=== PATIENT | female | born 1970 | race Caucasian/White ===

== ENCOUNTER 2017-12-13 11:27 | Emergency (ER) | payer MEDICAID ==
[2015-04-19 13:24] VITALS: BMI 24.1
[~2017-12-13 11:27] MED LIST: NORVASC5 MG PO; PLAVIX75 MG PO
[2017-12-13 12:20] LABS: ALBUMIN 3.3 g/dL (3.4-5.0); ANION GAP 16.3 mmol/L (8-16); BILIRUBIN - TOTAL 0.45 mg/dL (0.2-1.3); CALCIUM 8.5 mg/dL (8.5-10.1); CARBON DIOXIDE 25.2 mmol/L (21.0-32.0); CREATININE - SERUM 0.9 mg/dL (0.6-1.3); POTASSIUM - SERUM 4.5 mmol/L (3.5-5.1); PROTEIN - SERUM 7.1 g/dL (6.4-8.2)
[2017-12-13 12:24] LABS: BASOPHILS 0.3 % (0-2); EOSINOPHILS 3.4 % (0-7); HEMATOCRIT 36.7 % (36.0-48.0); IMMATURE GRANULOCYTES 0.3 % (0-5); LYMPHOCYTES 25.1 % (15-50); MCH 29.9 pg (26.0-34.0); MCHC 32.7 g/dL (31.0-37.0); MCV 91.5 fL (80.0-100.0); MEAN PLATELET VOLUME 10.6 fL (7.4-10.4); NEUTROPHILS 63.9 % (40-80); RBC 4.01 10x6/uL (4.00-5.40); RDW 13.9 % (11.5-14.5); WBC 7.7 10x3/uL (4.8-10.8)
[2017-12-13 12:25] LABS: PLATELET COUNT 253 10x3/uL (130-400)
[2017-12-13 13:58] LABS: INR 1.03 (0.85-1.17); PROTIME 13.1 SECONDS (11.6-15.0)
[2017-12-13 14:54] LABS: APPEARANCE HAZY (CLEAR); BILIRUBIN NEGATIVE (NEGATIVE); COLOR YELLOW (YELLOW); GLUCOSE NEGATIVE (NEGATIVE); KETONE NEGATIVE (NEGATIVE); NITRITE NEGATIVE (NEGATIVE); PROTEIN NEGATIVE (NEGATIVE); UROBILINOGEN NORMAL (NORMAL)
== END 2017-12-13 17:00 | disposition home or self-care (01) ==
LOC: D.ER 11:27
PROVIDERS: Family Medicine; Nurse Practitioner Family
DX: R60.0 Localized edema (principal); I10 Essential (primary) hypertension; E11.9 Type 2 diabetes mellitus without complications; I25.10 Atherosclerotic heart disease of native coronary artery without angina pectoris

== ENCOUNTER 2018-01-17 19:23 | Emergency (ER) | payer MEDICAID ==
[2015-04-19 13:24] VITALS: BMI 24.1
[2018-01-17 20:03] LABS: BASOPHILS 0.2 % (0-2); EOSINOPHILS 2.3 % (0-7); HEMATOCRIT 38.8 % (36.0-48.0); HEMOGLOBIN 12.9 g/dL (12-16); IMMATURE GRANULOCYTES 0.3 % (0-5); LYMPHOCYTES 20.9 % (15-50); MCH 30.4 pg (26.0-34.0); MCHC 33.2 g/dL (31.0-37.0); MCV 91.5 fL (80.0-100.0); MEAN PLATELET VOLUME 10.5 fL (7.4-10.4); MONOCYTES 7.2 % (2-11); NEUTROPHILS 69.1 % (40-80); PLATELET COUNT 298 10x3/uL (130-400); RBC 4.24 10x6/uL (4.00-5.40); RDW 13.8 % (11.5-14.5); WBC 10.3 10x3/uL (4.8-10.8)
[2018-01-17 20:22] LABS: ALBUMIN 3.6 g/dL (3.4-5.0); ALKALINE PHOSPHATASE 102 U/L (46-116); ALT (SGPT) 31 U/L (10-68); BILIRUBIN - TOTAL 0.19 mg/dL (0.2-1.3); CALC OSMOLALITY 285 mosm/kg (275-300); CALCIUM 8.6 mg/dL (8.5-10.1); CARBON DIOXIDE 28.1 mmol/L (21.0-32.0); CHLORIDE - SERUM 105 mmol/L (98-107); GLUCOSE 127 mg/dL (74-106); PROTEIN - SERUM 7.4 g/dL (6.4-8.2); SODIUM 142 mmol/L (136-145); UREA NITROGEN 16 mg/dL (7-18); eGFR NON AFRICAN AMERICAN 63 mL/min (90-120)
[2018-01-17 20:26] LABS: CREATINE KINASE 63 UL (21-215); TROPONIN-I < 0.017 ng/mL (0.000-0.060)
[2018-01-17 23:32] LABS: LIPASE 88 U/L (73-393); PRO BNP 73 pg/mL (0-125)
== END 2018-01-17 23:53 | disposition home or self-care (01) ==
LOC: D.ER 19:23
PROVIDERS: Family Medicine
DX: R53.1 Weakness (principal); R42 Dizziness and giddiness; I25.10 Atherosclerotic heart disease of native coronary artery without angina pectoris; E11.9 Type 2 diabetes mellitus without complications

== ENCOUNTER 2018-09-29 05:15 | Day surgery (SDC) | payer MEDICAID ==
[2018-09-26 14:37] LABS: BASOPHILS 0.2 % (0-2); EOSINOPHILS 3.2 % (0-7); HEMATOCRIT 41.8 % (36.0-48.0); HEMOGLOBIN 13.9 g/dL (12-16); IMMATURE GRANULOCYTES 0.3 % (0-5); LYMPHOCYTES 27.6 % (15-50); MCH 29.2 pg (26.0-34.0); MCHC 33.3 g/dL (31.0-37.0); MCV 87.8 fL (80.0-100.0); MEAN PLATELET VOLUME 10.4 fL (7.4-10.4); MONOCYTES 5.4 % (2-11); NEUTROPHILS 63.3 % (40-80); PLATELET COUNT 293 10x3/uL (130-400); RBC 4.76 10x6/uL (4.00-5.40); RDW 14.9 % (11.5-14.5); WBC 9.9 10x3/uL (4.8-10.8)
[2018-09-26 14:51] LABS: ANION GAP 12.3 mmol/L (8-16); CALCIUM 8.6 mg/dL (8.5-10.1); CARBON DIOXIDE 25.7 mmol/L (21.0-32.0); CREATININE - SERUM 0.9 mg/dL (0.6-1.3)
[~2018-09-29] VITALS: Ht 162.6 cm; Wt 86.8 kg
[2018-09-29] VITALS (10 sets, daily range): BP systolic 106–126; BP diastolic 61–81; BMI 32.3
[~2018-09-29 05:15] MED LIST changes: +BAYER CHEWABLE81 MG PO; +FLUTICASONE PRO16 GM NASAL; +GLUCOPHAGE500 MG PO; +KLONOPIN1 MG PO; +LEVOTHYROXINE50 MCG PO; +LEXAPRO10 MG PO; +LIPITOR80 MG PO; +METOPROLOL-HCT1 EACH PO; +MOBIC7.5 MG PO; +PROVENTIL/2.5 MG/3 M INH; +PROVERA10 MG PO; +RANEXA1000 MG PO; +TOPAMAX50 MG PO
[2018-09-29] MEDS ORDERED: HYDROCHLOROTHIA25 MG PO (06:21)
[2018-09-29] MEDS ORDERED: METOPROLOL TART25 MG PO (06:21)
[2018-09-29 07:04] LABS: HCG URINE NEGATIVE (NEGATIVE)
--- NOTE | 2018-09-29 11:58 | NUR ---
1145-RECD FROM PACU. AROUSES EASILY, DROWSY. O2 ON AT 2L PER NC. IV PATENT. INCISIONS X 3 TO ABD DRY AND INTACT. STATES SHE IS COMFORTABLE. TAKING ICE CHIPS WITHOUT NAUSEA.
--- NOTE | 2018-09-29 12:36 | NUR ---
RECEIVED PT VIA STRETCHER FROM OUTPATIENT TO ROOM 1274. PT TRANSFERS ONTO BED PER SELF. VSS. PIV SITE CLEAR TO RIGHT AC-20 GAUGE CATHELON NOTED. TRANSPORTER STATES LANG TAKEN OUT IN OUTPATIENT DEPT. PT STATES HAS NOT VOIDED SINCE LANG REMOVED. SCDS ON BLE. PUMP ON. 3 LAP INCISION NOTED WITH DERMABOND. NO SWELLING OR DRAINAGE NOTED. SMALL AREA OF REDNESS NOTED AROUND INCISIONS. PT DENIES C/O PAIN OR NAUSEA. PT REQUESTING TO EAT. DIET LEMON-EKUK SODA PROVIDED TO PT. SR UP X 2. CALL LIGHT IN REACH.
--- NOTE | 2018-09-29 13:00 | NUR ---
DR MCQUEEN ON UNIT. NOTIFIED PT HAS HOME MEDS, NOT ORDERED TO CONTINUE AND PT REQUESTING TO EAT. ORDERS RECEIVED.
--- NOTE | 2018-09-29 14:05 | NUR ---
PT LYING IN SEMI-PANG'S POSITION IN BED. WAKES UPON ENTERING ROOM. STATES ATE SOME LUNCH. DENIES NAUSEA OR C/O.
--- NOTE | 2018-09-29 15:29 | NUR ---
PT OOB AND AMB TO BR TO VOID. STEADY GAIT.
--- NOTE | 2018-09-29 15:32 | NUR ---
PT VOIDS 30 ML OF BRIGHT YELLOW URINE. NO VAGINAL DISCHARGE NOTED. PANTIES AND PAD ON. PT AMBULATES BACK TO BED. SEAMUS ACTIVITY WELL.
--- NOTE | 2018-09-29 15:47 | NUR ---
PT C/O ABDOMINAL PAIN OF "5" ON 0-10 PAIN SCALE. PERCOCET 5325 GIVEN PO ORDERED. PT INSTRUCTED ON MED. VERBALIZES UNDERSTANDING. O2 SAT 93%. O2 BACK ON PER N/C AT 2 L/MIN.
--- NOTE | 2018-09-29 17:51 | NUR ---
MEDS GIVEN ORDERED. PT CONSUMES ADA DIET WITHOUT C/O NAUSEA. NO C/O VOICED.
--- NOTE | 2018-09-29 18:00 | NUR ---
PT OBO AND AMB TO BR. VOIDS 150 ML OF BRIGHT YELLOW URINE. PT AMBULATES BACK TO BED. SCDS BACK ON BLE. PUMP ON. PULSE OX 92% ON ROOM AIR. N/C BACK ON AT 2L/MIN.
--- NOTE | 2018-09-29 18:25 | NUR ---
O2 SAT 98% WITH O2 OFF.
--- NOTE | 2018-09-29 18:29 | NUR ---
DR MCQUEEN ON UNIT. STATUS REPORT GIVEN. STATES PT MAY DC HOME IF DESIRES.
--- NOTE | 2018-09-29 18:32 | OP ---
PATIENT NAME: TANISHA TAYLOR MEDICAL RECORD: [id number] :68 [facility].1274 ADMISSION DATE: SURGEON: ARSALAN MCQUEEN MD DATE OF OPERATION: 09/29/2018 PREOPERATIVE DIAGNOSIS: Dysfunctional uterine bleeding. POSTOPERATIVE DIAGNOSES: 1. Dysfunctional uterine bleeding. 2. Suspect adenomyosis. 3. Adhesive disease. PROCEDURES: 1. Diagnostic laparoscopy. 2. Lysis of adhesions. 3. Laparoscopic subtotal hysterectomy. 4. Left oophorectomy. 5. Bilateral salpingectomy. SURGEON: Arsalan Mcqueen MD DIE FINISHER: Edgard Blum ANESTHESIOLOGIST: Stanislaw Kam MD ANESTHETIC: General. FINDINGS: Uterus was enlarged and boggy. Right ovary and tube were unremarkable. Left ovary and tube were unremarkable as well. Adhesions of the omentum to the right lower quadrant. There was an adhesion band of the right ovary to the right abdominal wall. SPECIMENS REMOVED: 1. Bilateral tubes. 2. Left ovary. 3. Uterus. ESTIMATED BLOOD LOSS: Less than or equal to 50 cc. FLUIDS: Lactated Ringer's 1500 cc. URINE OUTPUT: Clear urine, 100 cc. COMPLICATIONS: None. DRAIN: Turcios to gravity discontinued upon discharge from PACU. INDICATION: The patient is a 48-year-old female who has had conservative management in the past with pelvic pain and dysmenorrhea as well as cyclic menorrhagia. The patient has been offered continued medical therapy, but declines and desires definitive therapy. The risks and benefits of laparoscopic subtotal hysterectomy have been discussed at length. The patient understands all risks and wishes to proceed. DESCRIPTION OF PROCEDURE: After informed consent was assured, the patient was OPERATIVE REPORT [id number] TANISHA TAYLOR taken to the operating room, where anesthetic was obtained without difficulty. The patient was prepped and draped in usual sterile fashion. An incision was made at the umbilicus and this incision was extended to the fascia. The fascia was opened and a Justine trocar was inserted. Once ligatures were placed around the stay buttons of the trocar, accessory port was placed in right and left lower quadrants. The right lower quadrant port was a 10-12 port and left lower quadrant port was a 5-mm port. The bowel was swept free of the pelvis with the patient in Trendelenburg and the right tube was elevated. The tube was now removed with serially compressing, coagulating, and its attachments to the adnexa. Once the tube had been dissected free, it was removed from the 10-mm port. The uteroovarian ligament was now compressed, coagulated, and . Round ligament and broad ligament were opened. The anterior leaf of the broad ligament was extended to the midline for development of bladder flap. The posterior leaf was opened and the connective tissue of the right vascular bundle was dissected free. The vessels of the right were identified at the internal os. The vessels were now compressed and coagulated. Attention was now directed to the left side. Left tube and ovary were elevated in similar fashion. Using coagulation cutter, the infundibulopelvic ligament was compressed, coagulated, and . This dissection was carried down underneath the left ovary to the left vascular bundle. During this process, round ligament was . The bladder flap was fully developed and the vessel was skeletonized. Vessels on the left side were now compressed, coagulated, and . Using a Harmonic scalpel, the uterus was now removed from its attachments to the cervix. This begins on the left and completes on the right. A morcellator was then introduced and the uterus was removed from the pelvis in several segments. After removal of the uterus, left ovary and tube, the pelvis was inspected and the straight portions of the uterus which were found in the cul-de-sac were removed easily. The pelvis was now copiously irrigated and irrigant was removed. This was performed twice. Inspection of the operative field revealed adequate hemostasis. To initiate dissection of the right adnexa, adhesions were taken down from the right abdominal wall to the right ovary. The endocervical canal was now cauterized using Harmonic scalpel. After this was performed, the pelvis was irrigated for the third time and irrigant was removed. Accessory trocars were removed under direct visualization. Skin sites were reapproximated. The primary trocar was now removed. The fascia was reapproximated with #0 Vicryl stitch and then a subcuticular stitch was placed on the primary incision site. Sponge, lap, and needle counts were correct times 2 at the closure of this procedure. The patient went to the recovery room in stable condition. TRANSINT:[id number] Voice Confirmation ID: [id number] DOCUMENT ID: [id number] ARSALAN MCQUEEN MD at 1832 CC: [id number] DICTATION DATE: 09/29/18 1043 DAIRY FARM SUPERVISOR: 09/29/18 1542 [facility] [address] [id number]
--- NOTE | 2018-09-29 18:35 | NUR ---
PT INFORMED THAT PT MAY DC HOME IF DESIRES PER DR MCQUEEN. PT AND SO DISCUSS DISCHARGE AT THIS TIME. WILL NOTIFY NURSE OF DESIRE.
--- NOTE | 2018-09-29 19:00 | NUR ---
PT LYING SEMI-PANG'S POSITION. AWAKE. STATES DECIDED TO STAY OVERNIGHT.
--- NOTE | 2018-09-29 19:34 | NUR ---
PT C/O ABDOMINAL PAIN OF "6" ON 0-10 PAIN SCALE. PERCOCET 5/325 2 TABS GIVEN PO ORDERED. PT INSTRUCTED ON MED. VERBALIZES UNDERSTANDING.
--- NOTE | 2018-09-29 19:56 | NUR ---
PT ALERT, ORIENTED X3, VSS, TEMP 98.0 ORALLY, ENCOURAGED TCDB AND USE OF INCENTIVE SPIROMETER-DEMONSTRATES 1500ML INSPIRED VOLUME ON ENCOURAGEMENT WITH COUGH ELICITED, REVIEWED PLAN OF CARE TO GET OOB AND AMBULATE IN HALLS THIS PM, TOLERATING PO FLUIDS, WATER PROVIDED UPON REQUEST, DENIES N/V, ABD SOFT, OBESE AND MILD DISTENSION NOTED, BOWEL SOUNDS ACTIVE X4 QUADRANTS, REPORTS FLATUS, INCISION TO UMBILICUS AND RLQ AND LLQ CDI WITH DERMABOND, NO DRAINAGE, REDNESS OR WARMTH NOTED, VOIDING WITHOUT DIFFICULTY X2, STOVALL FREELY, NEGATIVE YANIQUE'S SIGN B LE, PEDAL PULSES STRONG/=/+2 B. O2 SAT 95% ON ROOM AIR, ENCOURAGED TO TCDB HOURLY WHILE AWAKE, PT STATES UNDERSTANDING. CALL LIGHT IN EASY REACH, BED IN LOW POSITION, BRAKES LOCKED, SIDE RAILS UP X2. SIGNIFICANT OTHER IN ROOM WITH PT.
--- NOTE | 2018-09-29 20:40 | NUR ---
PT AAOX3, TALKATIVE, SIGNIFICANT OTHER IN ROOM, DENIES NEEDS OR CONCERNS, SR UP X2, BED IN LOW POSITION, BRAKES LOCKED, CONTINUE TO MONITOR.
--- NOTE | 2018-09-29 21:04 | NUR ---
PT ALERT, TALKATIVE, SITTING UP IN BED, HOB AT 60 DEGREES, SIDE RAILS UP X2, BED IN LOW POSITION, BRAKES LOCKED, TOLERATING PO FLUIDS. DENIES OTHER NEEDS.
--- NOTE | 2018-09-29 21:15 | NUR ---
AMBULATORY IN HALLS, PT TALKATIVE DENIES C/O PAIN OR OTHER NEEDS, RESP EVEN AND UNLABORED, CONTINUE TO MONITOR.
--- NOTE | 2018-09-29 22:08 | NUR ---
ROUNDS COMPLETED, VSS, AFEBRILE, O2 SAT AT 95% ON ROOM AIR, COUGH NOTED ON INSPIRATION WITH ENCOURAGEMENT, RT TO PROVIDE INHALER LATER THIS PM, PT OOB TO BR, VOIDS WITHOUT DIFFICULTY, SCDS BACK IN PLACE ON RETURN TO BED AND FUNCTIONING, CALL LIGHT IN EASY REACH, FRESH ICE PACK OVERLAY PROVIDED TO PT UPON REQUEST, DENIES OTHER NEEDS AT THIS TIME CONTINUE TO MONITOR.
--- NOTE | 2018-09-29 23:33 | NUR ---
C/O PAIN RATES 6 OF 10 ON NUMERIC PAIN SCALE, INCISIONAL WORSENS WITH MOVEMENT, SCHEDULED KETORALAC AND PRN PAIN MEDS GIVEN WITH SIPS OF WATER. CHIPS PROVIDED UPON REQUEST.
--- NOTE | 2018-09-30 01:13 | NUR ---
PAIN REASSESSMENT COMPLETED, PT RESTING WITH EYES CLOSED, NO PHYSICAL S/SX PAIN OBSERVED, NAD NOTED, CONTINUE TO MONITOR.
--- NOTE | 2018-09-30 01:14 | NUR ---
ROUNDS COMPLETED, PT RESTING WITH EYES CLOSED, HOB ELEVATED AT 45 DEGREES, RESP EVEN AND UNLABORED, CONTINUE TO MONITOR.
[2018-09-30 03:26] VITALS: BP 108/60
--- NOTE | 2018-09-30 03:27 | NUR ---
PT ROUSES TO VERBAL STIMULI ON ROUNDS, VSS, AFEBRILE, O2 SAT 96% ON RA. CALL LIGHT IN EASY REACH. C/O PAIN RATED A 2 ON NUMERIC PAIN SCALE, DENIES NEEDS. CONTINUE TO MONITOR.
--- NOTE | 2018-09-30 05:32 | NUR ---
PT ALERT AND ORIENTED ON ROUNDS, AM MEDS GIVEN WITH SIPS WATER. RATES PAIN A 4 ON NUMERIC PAIN SCALE 0-10. SCHEDULED KETORALAC GIVEN. SALINE LOCK FLUSHED TO RIGHT A/C WITHOUT DIFFICULTY. CONTINUE TO MONITOR.
[2018-09-30 06:39] VITALS: Ht 162.6 cm; Wt 86.8 kg
--- NOTE | 2018-09-30 07:19 | NUR ---
PT RINGS CALL LIGHT REQUESTING MEAL TRAY. RN TO BEDSIDE. PT STATES "I DIDN'T KNOW I WAS GETTING A MEAL TRAY. I JUST WANTED TO KNOW WHEN BREAKFAST WAS." PT IS SITTING UP IN BED, DENIES PAIN OR NEEDS AT THIS TIME.
[2018-09-30 08:56] VITALS: BP 132/81
--- NOTE | 2018-09-30 08:56 | NUR ---
THIS RN TO ROOM FOR SHIFT ASSESSMENT. PT SITTING UP IN BED, STATES SHE JUST GOT BACK FROM BATHROOM AND SO PAIN IS WORSE DUE TO ACTIVITY, RATES PAIN 4/10 AT INCISION. SHIFT ASSESSMENT COMPLETED, VSS, SEE FLOWSHEET FOR DOC. RIGHT AC PIV REMOVED NO LONGER INDICATED, PT WILL D/C HOME TODAY. 3 LAP INCISIONS ON ABD ARE C/D WITH GLUE INTACT. NO REDNESS, SWELLING, OR DRAINAGE FROM SITES. NO VAGINAL BLEEDING NOTED. PT REPORTS PASSING "LOTS OF GAS" BUT NO BOWEL MOVEMENT YET. PEDAL PULSES 2+ BILAT. WILL ADMIN MEDS SCHEDULED, SEE EMAR. SRUx2, CL IN REACH. WILL CONT TO MONITOR.
--- NOTE | 2018-09-30 09:58 | NUR ---
DR MCQUEEN GIVEN REPORT ON PT, STATES HE WILL BE ROUNDING TO D/C PT SHORLTY AND TO START D/C TEACHING AND PAPERWORK NOW.
--- NOTE | 2018-09-30 10:05 | NUR ---
DR MCQUEEN TO ROOM TO ASSESS PT. V/O RCVD TO D/C PT TO HOME AT THIS TIME.
--- NOTE | 2018-09-30 10:37 | NUR ---
D/C INSTRUCTIONS EXPLAINED, SIGNED, AND WITNESSED. COPY OF INSTRUCTIONS PROVIDED TO PT. FOLLOW UP APPT AND PRESCRIPTIONS PROVIDED. PT OFFERS NO FURTHER QUESTIONS OR CONCERNS. AWAITING S.O. FOR RIDE HOME. ADV TO CALL DISPATCH ASSOCIATE LIGHT WHEN READY FOR WHEELCHAIR TRANSPORT OFF UNIT.
--- NOTE | 2018-09-30 10:50 | NUR ---
PT TRANSPORTED OFF UNIT VIA W/C TO AWAITING RIDE.
== END 2018-09-30 10:50 | disposition home or self-care (01) ==
LOC: D.OPS 05:15 → D.PAN 07:30 → D.OPS 08:10 → D.PAN 08:10 → D.OPS 08:30 → D.PAN 11:15 → D.LD 12:15 → D.OPS 09-30 10:50
PROVIDERS: Obstetrics & Gynecology
DX: N80.0 Endometriosis of uterus (principal); N83.02 Follicular cyst of left ovary; Z01.812 Encounter for preprocedural laboratory examination

== ENCOUNTER 2018-10-02 18:30 | Observation (INO) | payer MEDICAID ==
[~2018-10-02] VITALS: Ht 162.6 cm; Wt 85.5 kg
--- NOTE | ~2018-10-02 | EC ---
PATIENT:BRANDONTANISHA DATE OF SERVICE: 10/03/18 SEX: F MEDICAL RECORD: [id number] DATE OF : [birth year] LOCATION:D. D.120 AGE OF PATIENT: 48 ADMISSION DATE: 10/03/18 REFERRING PHYSICIAN: INTERPRETING PHYSICIAN: PAKO SEGOVIA MD ECHOCARDIOGRAM REPORT ECHO CHARGES 4 ECHO COMPLETE Date: 10/03/18 CLINICAL DIAGNOSIS: CHF ECHOCARDIOGRAPHIC MEASUREMENTS (adult normal given) AC root (d.<3.7cm) 3.4 cm LV Septum d (<1.2 cm> 1.3 cm Valve Excursion 1.5 cm LV Septum (systole) 1.4 cm Left Atria (s.<4.0cm> 4.2 cm LVPW d(<1.2cm) 1.3 cm RV (d.<2.3cm) 3.8 cm LVPW (sytole) 1.8 cm LV diastole(<5.6CM) 5.0 cm MV E-F(>70mm/sec) cm LV systole 3.3 cm LVOT Diameter 2.1 cm MV exc.(>10mm) 1.4 cm Est.ejection fraction (50-75%) % DOPPLER: LVIT cm/sec A 39.0 cm/sec E 118 cm/sec LA cm/sec RVSP 24 mmHg LVOT 106 cm/sec AOP1/2T m/s Asc. Ao 147 cm/sec RVOT 110 cm/sec RA cm/sec PA 140 cm/sec AV Gradient Peak 8.59 mmHg AV Mean 4.00 mmHg AV Area 2.4 cm MV Gradient Peak 9.82 mmHg MV Mean 3.21 mmHg MV Area cm COMMENTS: Mini Shifter: Asad OLIVAS Sleeve Sewer: 1 Dr. Segovia TAPE# PACS Pericardial Effusion N DATE OF SERVICE: Echocardiogram FINDINGS: 1. Left ventricle chamber size is within normal limits. Left ventricular systolic function is normal. Overall ejection fraction estimated at 55%. 2. Left atrium is enlarged at 4.2 cm. Right atrium and right ventricular chamber sizes are as well mildly dilated. 3. Valvular structures have normal structure and motion. ECHOCARDIOGRAM REPORT [id number] TANISHA TAYLOR 4. Doppler interrogation reveals trace tricuspid regurgitation, no other valvular insufficiency or stenosis and pulmonary systolic pressure is estimated at 24 mmHg. 5. No evidence of pericardial effusion or left ventricular thrombus. TRANSINT:[id number] Voice Confirmation ID: [id number] DOCUMENT ID: [id number] PAKO SEGOVIA MD CC: [id number] DICTATION DATE: 10/03/18 154 CNC MAINTENANCE MECHANIC: 10/03/18 214 ADM IN [facility] [address] [id number]
--- NOTE | ~2018-10-02 | CN ---
PATIENT NAME:TANISHA TAYLOR MEDICAL RECORD: [id number] : 68 LOCATION:[facility]- ADMIT DATE: 10/03/18 ACCOUNT: [id number] CONSULTING PHYSICIAN: PAKO CONNOLLY MD REFERRING PHYSICIAN: AMMON WOODARD MD DATE OF CONSULTATION: 10/03/2018 CARDIOLOGY CONSULTATION ADMITTING DIAGNOSES: 1. Noncardiac chest pain -- pleuritic. 2. Shortness of breath. 3. Cough. 4. Coronary artery disease. 5. Previous cardiac stenting. 6. Hypertension. 7. Hyperlipidemia. 8. COPD. HISTORY OF PRESENT ILLNESS: Mrs. Taylor was recently in the hospital for a partial hysterectomy. She developed a cough while there, the cough has gotten worse. It is productive. She only has pleuritic chest pain. She has no anginal pain. She does have a history of coronary artery disease. Last PTCA stent was approximately 3 years ago. Her blood pressure is controlled on Norvasc and for hyperlipidemia, started on Lipitor. EKG is normal. Cardiac enzymes are normal. PHYSICAL EXAMINATION: GENERAL APPEARANCE: Well-nourished, well-developed, appears stated age. Level of distress, comfortable. PSYCHIATRIC: Mental status, alert, normal affect. Orientation, oriented to time, place and person. EYES: Lids and conjunctiva, noninjected. No discharge, no pallor. ENT: Lips, teeth, gums, normal dentition. Oropharynx, no cyanosis, no pallor. NECK: Carotid arteries, bilateral normal upstroke, no bruits, no thrills. JUGULAR VEINS: No jugular venous pressure or distention. CERVICAL LYMPH NODES: Nontender, nonenlarged. THYROID: Not enlarged. Nontender. No nodules. LUNGS: Respiratory effort, unlabored. CHEST: Normal curvature. No thoracic deformity. No chest wall tenderness. Percussion, resonant. Auscultation, clear. No wheezes, no rales, no rhonchi. CARDIOVASCULAR: Precordial exam, nondisplaced. No heaves or pericardial thrills. Rate and rhythm, regular. Heart sounds, normal S1, normal S2. No S3, no gallop, no rub. Systolic murmur, not heard. Diastolic murmur, not heard. EXTREMITIES: No cyanosis, no edema. Peripheral pulses, full and equal in all extremities, except as noted. No bruits appreciated. ABDOMEN: Soft, nondistended. Normal aorta. No bruit. Nontender. No masses. Liver, nontender, no hepatomegaly. Spleen, nontender, no splenomegaly. MUSCULOSKELETAL: No joint tenderness. No joint swelling. No erythema. NEUROLOGICAL: Normal gait, normal strength, normal tone. SKIN: Warm and dry. OVERALL IMPRESSION: Atypical chest pain, this is noncardiac in etiology. This is secondary to her bronchitic or pneumonic process and/or COPD exacerbation. We will get an echo. No other cardiac workup or treatment is necessary. CONSULT REPORT [id number] TANISHA TAYLOR TRANSINT:[id number] Voice Confirmation ID: [id number] DOCUMENT ID: [id number] PAKO CONNOLLY MD CC: [id number] DICTATION DATE: 10/03/18 1221 CORRUGATED SHEET MATERIAL SHEETER: 10/03/18 1235 ADM IN [facility] [address] [place] [address]
[~2018-10-02 18:30] MED LIST changes: +HYDROCHLOROTHIA25 MG PO; +METOPROLOL TART25 MG PO
[2018-10-02 19:27] LABS: BASOPHILS 0.2 % (0-2); EOSINOPHILS 4.6 % (0-7); HEMATOCRIT 37.4 % (36.0-48.0); HEMOGLOBIN 12.3 g/dL (12-16); IMMATURE GRANULOCYTES 0.3 % (0-5); MCH 29.3 pg (26.0-34.0); MCHC 32.9 g/dL (31.0-37.0); MEAN PLATELET VOLUME 10.4 fL (7.4-10.4); MONOCYTES 5.9 % (2-11); PLATELET COUNT 235 10x3/uL (130-400); RDW 15.2 % (11.5-14.5); WBC 9.6 10x3/uL (4.8-10.8)
[2018-10-02 19:38] LABS: APTT 27.9 SECONDS (22.8-39.4); INR 0.98 (0.85-1.17); PROTIME 12.5 SECONDS (11.6-15.0)
[2018-10-02 19:39] LABS: D-DIMER-QUANTITATIVE 0.97 ug/mLFEU (0.20-0.54)
[2018-10-02 19:41] LABS: ALBUMIN 3.1 g/dL (3.4-5.0); ALKALINE PHOSPHATASE 84 U/L (46-116); ALT (SGPT) 27 U/L (10-68); CALC OSMOLALITY 278 mosm/kg (275-300); CALCIUM 8.5 mg/dL (8.5-10.1); CARBON DIOXIDE 24.5 mmol/L (21.0-32.0); CHLORIDE - SERUM 104 mmol/L (98-107); CREATININE - SERUM 0.9 mg/dL (0.6-1.3); GLUCOSE 134 mg/dL (74-106); POTASSIUM - SERUM 3.6 mmol/L (3.5-5.1); PROTEIN - SERUM 6.8 g/dL (6.4-8.2); SODIUM 139 mmol/L (136-145); UREA NITROGEN 11 mg/dL (7-18); eGFR NON AFRICAN AMERICAN 70 mL/min (90-120)
[2018-10-03] VITALS (8 sets, daily range): BP systolic 107–151; BP diastolic 61–93; Ht 162.6 cm; Wt 85.5 kg
[2018-10-03 01:21] LABS: CKMB 0.5 U/L (0.0-3.6); CREATINE KINASE 99 UL (21-215); PRO BNP 548 pg/mL (0-125); TROPONIN-I < 0.017 ng/mL (0.000-0.060)
[2018-10-04 05:28] VITALS: BP 150/84
[2018-10-04 06:46] LABS: BASOPHILS 0.1 % (0-2); EOSINOPHILS 0.1 % (0-7); HEMATOCRIT 38.5 % (36.0-48.0); HEMOGLOBIN 12.8 g/dL (12-16); IMMATURE GRANULOCYTES 0.3 % (0-5); LYMPHOCYTES 21.6 % (15-50); MCH 29.2 pg (26.0-34.0); MCHC 33.2 g/dL (31.0-37.0); MCV 87.7 fL (80.0-100.0); MEAN PLATELET VOLUME 10.4 fL (7.4-10.4); MONOCYTES 7.2 % (2-11); NEUTROPHILS 70.7 % (40-80); PLATELET COUNT 249 10x3/uL (130-400); RBC 4.39 10x6/uL (4.00-5.40); RDW 15.2 % (11.5-14.5); WBC 11.6 10x3/uL (4.8-10.8)
[2018-10-04 06:58] LABS: ANION GAP 15.5 mmol/L (8-16); CALCIUM 8.5 mg/dL (8.5-10.1); CARBON DIOXIDE 24.2 mmol/L (21.0-32.0); CREATININE - SERUM 0.9 mg/dL (0.6-1.3); POTASSIUM - SERUM 3.7 mmol/L (3.5-5.1)
[2018-10-04 08:05] VITALS: BP 149/97
[2018-10-04 11:32] VITALS: BP 102/55
[2018-10-04 15:43] VITALS: BP 139/91
[2018-10-04 16:19] LABS: APPEARANCE CLEAR (CLEAR); BILIRUBIN NEGATIVE (NEGATIVE); COLOR YELLOW (YELLOW); GLUCOSE NEGATIVE (NEGATIVE); KETONE NEGATIVE (NEGATIVE); NITRITE NEGATIVE (NEGATIVE); PROTEIN NEGATIVE (NEGATIVE); UROBILINOGEN NORMAL (NORMAL)
[2018-10-04 20:00] VITALS: BP 137/84
[2018-10-04 23:42] VITALS: BP 132/84
[2018-10-05 04:00] VITALS: BP 132/90
[2018-10-05 07:34] LABS: BASOPHILS 0.4 % (0-2); EOSINOPHILS 2.7 % (0-7); HEMATOCRIT 39.7 % (36.0-48.0); HEMOGLOBIN 13.1 g/dL (12-16); IMMATURE GRANULOCYTES 0.3 % (0-5); LYMPHOCYTES 39.1 % (15-50); MCV 87.8 fL (80.0-100.0); MEAN PLATELET VOLUME 10.3 fL (7.4-10.4); NEUTROPHILS 49.5 % (40-80); PLATELET COUNT 257 10x3/uL (130-400); RBC 4.52 10x6/uL (4.00-5.40); RDW 15.3 % (11.5-14.5); WBC 9.5 10x3/uL (4.8-10.8)
[2018-10-05 08:28] LABS: ANION GAP 15.7 mmol/L (8-16); CALCIUM 8.4 mg/dL (8.5-10.1); CARBON DIOXIDE 24.2 mmol/L (21.0-32.0); CREATININE - SERUM 0.9 mg/dL (0.6-1.3); POTASSIUM - SERUM 3.9 mmol/L (3.5-5.1)
[2018-10-05 08:31] VITALS: BP 135/88
== END 2018-10-05 13:12 | disposition home or self-care (01) ==
LOC: D.ER 18:30 → OBSVTIME 10-03 01:20 → D.EDHOLD 10-03 01:20 → D.M3 10-03 14:01
PROVIDERS: Family Medicine; ADMIT Internal Medicine Nephrology
DX: J44.1 Chronic obstructive pulmonary disease with (acute) exacerbation (principal); G47.33 Obstructive sleep apnea (adult) (pediatric); K59.00 Constipation, unspecified; E78.5 Hyperlipidemia, unspecified; I10 Essential (primary) hypertension; I25.10 Atherosclerotic heart disease of native coronary artery without angina pectoris; E11.9 Type 2 diabetes mellitus without complications; E03.9 Hypothyroidism, unspecified; F32.9 Major depressive disorder, single episode, unspecified; F41.9 Anxiety disorder, unspecified

== ENCOUNTER → 2018-10-02 19:50 | Outpatient (CLI) | payer MEDICAID ==
[2018-10-02 18:43] VITALS: BMI 32.3
== END | disposition home or self-care (01) ==
LOC: D.MAMMO 11:30
DX: Z12.31 Encounter for screening mammogram for malignant neoplasm of breast (principal)

== ENCOUNTER 2018-10-11 09:07 | Emergency (ER) | payer MEDICAID ==
[2018-10-11 09:16] VITALS: Ht 162.6 cm
[2018-10-11 09:49] LABS: BASOPHILS 0.2 % (0-2); EOSINOPHILS 2.9 % (0-7); HEMATOCRIT 41.8 % (36.0-48.0); HEMOGLOBIN 14.2 g/dL (12-16); IMMATURE GRANULOCYTES 0.4 % (0-5); LYMPHOCYTES 28.4 % (15-50); MCH 29.6 pg (26.0-34.0); MCV 87.1 fL (80.0-100.0); MEAN PLATELET VOLUME 10.6 fL (7.4-10.4); MONOCYTES 7.2 % (2-11); NEUTROPHILS 60.9 % (40-80); PLATELET COUNT 300 10x3/uL (130-400); RDW 14.7 % (11.5-14.5)
[2018-10-11 09:57] LABS: ALBUMIN 3.6 g/dL (3.4-5.0); ALKALINE PHOSPHATASE 84 U/L (46-116); ALT (SGPT) 26 U/L (10-68); BILIRUBIN - TOTAL 0.17 mg/dL (0.2-1.3); CALC OSMOLALITY 281 mosm/kg (275-300); CALCIUM 8.9 mg/dL (8.5-10.1); CARBON DIOXIDE 25.6 mmol/L (21.0-32.0); CHLORIDE - SERUM 102 mmol/L (98-107); GLUCOSE 127 mg/dL (74-106); POTASSIUM - SERUM 3.7 mmol/L (3.5-5.1); PROTEIN - SERUM 7.8 g/dL (6.4-8.2); SODIUM 139 mmol/L (136-145); UREA NITROGEN 19 mg/dL (7-18); eGFR NON AFRICAN AMERICAN 62 mL/min (90-120)
[2018-10-11 10:05] LABS: CKMB 0.5 U/L (0.0-3.6); CREATINE KINASE 34 UL (21-215); PRO BNP 32 pg/mL (0-125); TROPONIN-I < 0.017 ng/mL (0.000-0.060)
[2018-10-11 10:59] LABS: APTT 28.7 SECONDS (22.8-39.4); INR 0.95 (0.85-1.17); PROTIME 12.6 SECONDS (11.6-15.0)
[2018-10-11 11:42] VITALS: BP 128/83
== END 2018-10-11 11:43 | disposition home or self-care (01) ==
LOC: D.ER 09:07
PROVIDERS: Emergency Medicine
DX: Z87.09 Personal history of other diseases of the respiratory system (principal); E11.9 Type 2 diabetes mellitus without complications; I10 Essential (primary) hypertension

== ENCOUNTER → 2018-10-16 09:00 | Outpatient (CLI) | payer MEDICAID ==
[2018-10-11 09:16] VITALS: BMI 32.3
[~2018-10-16 09:00] MED LIST changes: +PREDNISONE10 MG PO; +PROTONIX40 MG PO
--- NOTE | 2018-10-21 10:22 | ST ---
PATIENT:TANISHA TAYLOR MEDICAL RECORD: [id number] SEX: F LOCATION:[facility] ORDER #: ADMISSION DATE: 10/16/18 AGE OF PATIENT: 48 REFERRING PHYSICIAN: INTERPRETING PHYSICIAN: PAKO CONNOLLY MD DATE OF SERVICE: 10/16/2018 PROCEDURE: Nuclear stress test. INDICATIONS: Angina, coronary artery disease, hypertension. PROCEDURE DETAILS: The patient was exercised on standard Lexiscan protocol with 33 mCi of sestamibi injected at peak stress. Rest images were done previously with 10.7 mCi. FINDINGS: Gated SPECT reveals preserved ejection fraction at 77% with good wall motion and thickening and brightening throughout all segments. SPECT imaging Cardiolite was used as myocardial fusion agent. There is homogeneous uptake throughout all segments at rest and stress with no evidence of inducible ischemia or previous infarction. OVERALL IMPRESSION: 1. This is a normal nuclear stress test with no evidence of inducible ischemia or previous infarction. 2. Gated SPECT reveals a preserved ejection fraction at 77%. In this patient with ongoing symptomatology, the current scan does not suggest the presence of hemodynamically significant coronary artery disease. Evaluate noncardiac etiology of chest pain. TRANSINT:[id number] Voice Confirmation ID: [id number] DOCUMENT ID: [id number] PAKO CONNOLLY MD at 1022 CC: [id number] DICTATION DATE: 10/17/18 1303 TEXTILE ENGINEER: 10/18/18 0234 DEP CLI 10/16/18 [facility] [address] [place] [address]
== END | disposition home or self-care (01) ==
LOC: D.HCCARDIO 09:00
DX: I25.10 Atherosclerotic heart disease of native coronary artery without angina pectoris (principal)

== ENCOUNTER 2018-10-18 14:02 | Observation (INO) | payer MEDICAID ==
[2018-10-18] VITALS (7 sets, daily range): BP systolic 135–157; BP diastolic 83–95; BMI 32.3
[~2018-10-18] VITALS: Ht 162.6 cm; Wt 86.4 kg
[~2018-10-18 14:02] MED LIST changes: -PREDNISONE10 MG PO; -PROTONIX40 MG PO
[2018-10-18 14:51] LABS: BASOPHILS 0.3 % (0-2); EOSINOPHILS 3.5 % (0-7); HEMATOCRIT 38.8 % (36.0-48.0); HEMOGLOBIN 13.2 g/dL (12-16); IMMATURE GRANULOCYTES 0.3 % (0-5); LYMPHOCYTES 25.6 % (15-50); MCH 29.5 pg (26.0-34.0); MCV 86.6 fL (80.0-100.0); MEAN PLATELET VOLUME 10.3 fL (7.4-10.4); MONOCYTES 6.3 % (2-11); PLATELET COUNT 298 10x3/uL (130-400); RBC 4.48 10x6/uL (4.00-5.40); RDW 14.2 % (11.5-14.5)
[2018-10-18 15:09] LABS: ALBUMIN 3.4 g/dL (3.4-5.0); ALKALINE PHOSPHATASE 87 U/L (46-116); ALT (SGPT) 29 U/L (10-68); BILIRUBIN - TOTAL 0.22 mg/dL (0.2-1.3); CALC OSMOLALITY 280 mosm/kg (275-300); CALCIUM 8.8 mg/dL (8.5-10.1); CARBON DIOXIDE 23.9 mmol/L (21.0-32.0); CHLORIDE - SERUM 104 mmol/L (98-107); CREATININE - SERUM 0.9 mg/dL (0.6-1.3); GLUCOSE 131 mg/dL (74-106); POTASSIUM - SERUM 3.5 mmol/L (3.5-5.1); PROTEIN - SERUM 7.4 g/dL (6.4-8.2); SODIUM 139 mmol/L (136-145); UREA NITROGEN 15 mg/dL (7-18); eGFR NON AFRICAN AMERICAN 70 mL/min (90-120)
[2018-10-18 15:21] LABS: CKMB 0.4 U/L (0.0-3.6); CREATINE KINASE 56 UL (21-215)
[2018-10-18 15:22] LABS: TROPONIN-I < 0.017 ng/mL (0.000-0.060)
--- NOTE | 2018-10-18 17:25 | NUR ---
C/O NAUSEA AND HISTORY OF ALLERGY TO IV CONTRAST THAT IS ORDERED FOR CT SCAN. ERP INFORMED. ORDERS RECEIVED FOR BENADRYL AND ZOFRAN NOW PER DR. SIMPSON.
--- NOTE | 2018-10-18 17:50 | NUR ---
JONY FROM RADIOLOGY HERE AND STATES THAT THE RADIOLOGIST DETERMINED THAT DUE TO THE CONTRAST ALLERGY THE CT SCAN WOULD BE DONE W/O CONTRAST. SHE STATES THAT DECISION WAS MADE D/T THE DX FOR WHICH SHE NEEDED THE SCAN. JONY STATES THAT DR. CALLE IS AWARE AND IS OK WITH THE CHANGE.
--- NOTE | 2018-10-18 20:09 | NUR ---
RECIEVED FROM ER. BROUGHT IN AT SHIFT CHANGE IN W/C. ALERT AND ORIENTED X4. UP AD MAXIMUS. STATES HER RIBS HURT WHEN SHE COUGHS. ALSO, STATED THAT THEY ARE SUPPOSE TO GO DOWN HER THROAT AND SCOPE HER IN THE MORNING. THIS NURSE LOOKED AT ORDERS AND NO ORDER FOR CONSENTS AT THIS TIME.
[2018-10-19 04:30] VITALS: BP 140/92
--- NOTE | 2018-10-19 05:00 | NUR ---
PT RESTING IN BED WITH NO DISTRESS. RESPS EVEN/NONLABORED. MONITOR AND CPOC. CALL LIGHT IN REACH. NO NEEDS AT THIS TIME.
--- NOTE | 2018-10-19 07:00 | NUR ---
RECEIVED REPORT. ASSUMED CARE OF PATIENT. CALL LIGHT WITHIN REACH. PATIENT SITTING UP IN BED. NO DISTRESS. DENIES NEEDS AT THIS TIME.
--- NOTE | 2018-10-19 07:45 | NUR ---
CALLED PATIENT ROOM, PATIENT QUESTIONING ABOUT HER MEDICATIONS AND WHEN THE MD WOULD BE IN TO SEE HER. DENIES ANY FURTHER NEEDS AT THIS TIME. NO DISTRESS.
[2018-10-19 09:14] VITALS: BP 134/91
--- NOTE | 2018-10-19 10:09 | NUR ---
RT CALLED PATIENT IS REQUESTING BREATHING TREATMENT AND REQUESTED COUGH SYRUP AT THIS TIME. NO DISTRESS.
--- NOTE | 2018-10-19 10:35 | NUR ---
MEDICATED FOR PAIN AT THIS TIME. PATIENT STATES SHE IS HURTING FROM COUGHING, STATES HER RIBS HURT.
--- NOTE | 2018-10-19 14:04 | NUR ---
RESTARTED HOME MEDICATIONS AT THIS TIME. PATIENT SITTING IN BED, VERY TALKATIVE ABOUT WHAT TEST THE DOCTORS WILL DO NEXT ON HER. CALL LIGHT WITHIN REACH. NO DISTRESS.
[2018-10-19 14:15] VITALS: BP 141/78
--- NOTE | 2018-10-19 16:18 | NUR ---
FSBS 167. 2 UNITS HUMULIN ADMINISTERED PER SLIDING SCALE. NO DISTRESS.
--- NOTE | 2018-10-19 16:46 | NUR ---
MEDICATED FOR PAIN. NO DISTRESS.
--- NOTE | 2018-10-19 16:56 | NUR ---
UA COLLECTED AND SENT TO LAB.
[2018-10-19 19:01] LABS: APPEARANCE CLEAR (CLEAR); BILIRUBIN NEGATIVE (NEGATIVE); COLOR YELLOW (YELLOW); GLUCOSE NEGATIVE (NEGATIVE); KETONE NEGATIVE (NEGATIVE); NITRITE NEGATIVE (NEGATIVE); PROTEIN NEGATIVE (NEGATIVE); SPECIFIC GRAVITY 1.015 (1.005-1.020); UROBILINOGEN NORMAL (NORMAL)
[2018-10-19 19:03] LABS: RED CELLS - URINE 0-5 /hpf (0-5)
[2018-10-19 19:04] LABS: BACTERIA FEW /hpf (NONE SEEN); EPITHELIAL CELLS 0-5 /hpf (0-5)
--- NOTE | 2018-10-19 19:35 | NUR ---
RECIEVED UP IN BED WITH EYES OPEN AND TV ON. C/O ONE FOREARM MORE RED THAN THE OTHER. UNABLE TO SEE ANY DIFFERENCE IN COLOR OR TEMP.. ALERT AND ORIENTED X4. UP AD MAXIMUS. NO OTHER C/O VOICED. WILL CONT. POC.
[2018-10-19 20:30] VITALS: BP 130/73
[2018-10-20 04:30] VITALS: BP 127/77
[2018-10-20 05:39] LABS: BASOPHILS 0.1 % (0-2); EOSINOPHILS 0 % (0-7); HEMATOCRIT 37.4 % (36.0-48.0); HEMOGLOBIN 12.5 g/dL (12-16); IMMATURE GRANULOCYTES 0.6 % (0-5); LYMPHOCYTES 10.5 % (15-50); MCH 29.4 pg (26.0-34.0); MCHC 33.4 g/dL (31.0-37.0); MEAN PLATELET VOLUME 10.9 fL (7.4-10.4); MONOCYTES 4.5 % (2-11); NEUTROPHILS 84.3 % (40-80); PLATELET COUNT 328 10x3/uL (130-400); RBC 4.25 10x6/uL (4.00-5.40); RDW 15.1 % (11.5-14.5)
[2018-10-20 05:52] LABS: WBC 13.6 10x3/uL (4.8-10.8)
[2018-10-20 06:02] LABS: CALCIUM 8.2 mg/dL (8.5-10.1); CARBON DIOXIDE 22.9 mmol/L (21.0-32.0); POTASSIUM - SERUM 3.9 mmol/L (3.5-5.1)
--- NOTE | 2018-10-20 07:20 | NUR ---
ALERT AND ORIENTED. UP AB MAXIMUS. LEFT AC SL. DENIES ANY NEEDS AT PRESENT TIME. SR UP WITH CALL LIGHT IN REACH. WILL MONITOR
[2018-10-20 10:14] VITALS: BP 139/89
--- NOTE | 2018-10-20 10:59 | NUR ---
RESTING QUIETLY NAD NOTEDPT DENIES ANY NEEDS AT THIS TIME
[2018-10-20 12:20] VITALS: Ht 162.6 cm; Wt 86.4 kg
--- NOTE | 2018-10-20 14:31 | NUR ---
LYING QUIETLY. DENIES ANY NEEDS. SR UP WITH CALL IN REACH
--- NOTE | 2018-10-20 18:38 | NUR ---
HOB UP FOR DIET. PT COUGHED AND HAD SOME BLOOD IN NOSE AND MOUTH. VENANCIO NOTIFIED. DENIES ANY PAIN. WILL MONITOR
[2018-10-20 19:00] VITALS: BP 140/83
--- NOTE | 2018-10-20 19:26 | NUR ---
RECIEVED UP IN BED WITH EYES OPEN AND TV ON. ALERT AND ORIENTED X4. IV TO LEFT AC SL.. DENIES ANY NEEDS AT THIS TIME.
[2018-10-21 04:00] VITALS: BP 141/92
[2018-10-21 05:17] LABS: BASOPHILS 0.1 % (0-2); EOSINOPHILS 0 % (0-7); HEMATOCRIT 38.2 % (36.0-48.0); HEMOGLOBIN 12.8 g/dL (12-16); IMMATURE GRANULOCYTES 0.6 % (0-5); LYMPHOCYTES 9.8 % (15-50); MCHC 33.5 g/dL (31.0-37.0); MCV 86.6 fL (80.0-100.0); MEAN PLATELET VOLUME 10.7 fL (7.4-10.4); MONOCYTES 6.3 % (2-11); NEUTROPHILS 83.2 % (40-80); PLATELET COUNT 333 10x3/uL (130-400); RBC 4.41 10x6/uL (4.00-5.40); RDW 15.1 % (11.5-14.5); WBC 16.5 10x3/uL (4.8-10.8)
[2018-10-21 05:36] LABS: ANION GAP 16.4 mmol/L (8-16); CALCIUM 8.8 mg/dL (8.5-10.1); CARBON DIOXIDE 23.2 mmol/L (21.0-32.0); CREATININE - SERUM 1.1 mg/dL (0.6-1.3); POTASSIUM - SERUM 3.6 mmol/L (3.5-5.1)
--- NOTE | 2018-10-21 08:13 | NUR ---
ALERT AND ORIENTED. DENIES ANY NEEDS. LEFT ARM SL. SR UP WITH CALL LIGHT IN REACH.
[2018-10-21 09:47] VITALS: BP 138/96
--- NOTE | 2018-10-21 12:40 | NUR ---
PT RECIEVED FROM ER. ALERT AND ORIENTED. TELEMERTY SHOWS SR. O2 AT 3.5L/M PER NC.LEFT HAND SL. DENIES ANY NEEDS. SR UP WITH CALL LIGHT IN REACH
--- NOTE | 2018-10-21 17:52 | NUR ---
UP TO BATHROOM. GAIT STEADY. DENIES ANY NEEDS. WILL MONITOR
[2018-10-21 19:00] VITALS: BP 141/83
--- NOTE | 2018-10-21 19:30 | NUR ---
RESUMING PATIENT CARE. PATIENT IS ALERT AND ORIENTED RESTING COMFORTABLY IN BED. RESPIRATIONS ARE EVEN AND UNLABORED. PATIENT REMAINS ON 2L NC. PATIENT VERBALIZES NO NEEDS AT THIS TIME. CALL LIGHT WITHIN REACH. WILL CPOC.
[2018-10-22] VITALS: BP 132/86
[2018-10-22 04:00] VITALS: BP 146/87
[2018-10-22 06:24] LABS: BASOPHILS 0.1 % (0-2); EOSINOPHILS 0 % (0-7); HEMATOCRIT 36.7 % (36.0-48.0); HEMOGLOBIN 12.4 g/dL (12-16); LYMPHOCYTES 22.4 % (15-50); MCH 29.4 pg (26.0-34.0); MCHC 33.8 g/dL (31.0-37.0); MEAN PLATELET VOLUME 10.8 fL (7.4-10.4); MONOCYTES 8.7 % (2-11); NEUTROPHILS 67.8 % (40-80); PLATELET COUNT 299 10x3/uL (130-400); RBC 4.22 10x6/uL (4.00-5.40); RDW 15.2 % (11.5-14.5); WBC 13.8 10x3/uL (4.8-10.8)
[2018-10-22 06:45] LABS: ANION GAP 13.5 mmol/L (8-16); CALCIUM 8.7 mg/dL (8.5-10.1); CARBON DIOXIDE 28.9 mmol/L (21.0-32.0); POTASSIUM - SERUM 3.4 mmol/L (3.5-5.1)
--- NOTE | 2018-10-22 07:25 | NUR ---
ASSESSMENT DONE. DENIES NEEDS.
[2018-10-22 08:19] VITALS: BP 144/93
--- NOTE | 2018-10-22 10:14 | NUR ---
RESTS IN BED WITH EYES CLOSED. CALL LIGHT IN REACH. WILL MONITOR NEEDS.
[2018-10-22] MEDS ORDERED: PREDNISONE10 MG PO (11:20)
[2018-10-22 12:04] VITALS: BP 133/86
--- NOTE | 2018-10-22 13:16 | NUR ---
DC GIVEN TO PT
--- NOTE | 2018-10-22 13:46 | NUR ---
DC HOME PER PERSONAL CAR
[2018-10-22] MEDS ORDERED: PROTONIX40 MG PO (15:30)
[2018-10-23 03:10] LABS: IMMUNOGLOBULIN E 57 IU/mL (0-100)
--- NOTE | 2018-10-23 08:35 | MORECARE ---
CASE MANAGEMENT DISCHARGE SUMMARY PATIENT: TANISHA TAYLOR UNIT: [id number] ADM DATE: 10/18/18 AGE: 48 : [birth year] SEX: F ROOM/BED: D.2121 AUTHOR: COURTNEY MORA PHYSICIAN: REFERRING PHYSICIAN: AMMON WOODARD MD DATE OF SERVICE: 10/23/18 Discharge Plan Patient Name: TANISHA TAYLOR Facility: [facility]:[place] : 1970 Planned Disposition: Home Anticipated Discharge Date: 10/22/18 Discharge Date: 10/22/2018 Expected LOS: 4 Initial Reviewer: [email or web address] Initial Review Date: 10/23/2018 Generated: 10/23/18 9:35 am Patient Name: TANISHA TAYLOR Page [id number] at 0835 All edits/amendments must be made on the electronic document DICTATION DATE: 10/23/18833 PSYCHIATRIC LPN: YAW 10/23/18833 RPT#: [id number] DC DATE:10/22/18 STATUS: DIS IN [facility] [address] [place] [address] END OF REPORT
== END 2018-10-22 13:46 | disposition home or self-care (01) ==
LOC: D.ER 14:02 → D.EDHOLD 17:16 → OBSVTIME 17:16 → D.M2 17:16
PROVIDERS: Family Medicine; Internal Medicine Pulmonary Disease; ADMIT Internal Medicine Nephrology
DX: J44.1 Chronic obstructive pulmonary disease with (acute) exacerbation (principal); J96.01 Acute respiratory failure with hypoxia; J45.991 Cough variant asthma; J30.9 Allergic rhinitis, unspecified; J98.11 Atelectasis; I25.10 Atherosclerotic heart disease of native coronary artery without angina pectoris; I10 Essential (primary) hypertension; E78.5 Hyperlipidemia, unspecified; E11.9 Type 2 diabetes mellitus without complications; E03.9 Hypothyroidism, unspecified; F41.8 Other specified anxiety disorders; K59.00 Constipation, unspecified; R04.2 Hemoptysis

== ENCOUNTER 2018-11-17 08:55 | Outpatient (CLI) | payer MEDICAID ==
[~2018-11-17] VITALS: Ht 162.6 cm; Wt 79.5 kg
--- NOTE | ~2018-11-17 | HEMODYNAMI ---
PATIENT:TANISHA TAYLOR MEDICAL RECORD: [id number] : 68 LOCATION:[facility] ADMISSION DATE: 11/17/18 Generatedon:11/17/201811:33 Patient name: TANISHA TAYLOR Patient #: [id number] SSN: : 1 11/18/1969 Date of study: 11/17/2018 Page: Of Hemodynamic Procedure Report Patient Data Patient Demographics Procedure consent was obtained First Name: TANISHA Gender: Female Last Name: BRANDON : 1970 [facility] Initial: CLYDE Age: 48 year(s) Patient #: [id number] Race: Unknown Additional ID: [id number] Contact details Address: [address] [place] [address] State: [place] [facility] Zip code: [address] Past Medical History Allergies Allergen Reaction Date Comments Reported Iodine 11/17/2018 Other allergy 11/17/2018 azithromycin, trazadone, ceclor, nickel Admission Admission Data Admission Date: 11/17/2018 Admission Time: 8:55 Procedure Procedure Types Cath Procedure Diagnostic Procedure LHC LHC w/Coronaries Peripheral Cath Diagnostic Procedure Thread Reeler Peripheral Procedures Qetls-Shxiuoo-Esg-Off Procedure Description Procedure Date Procedure Date: 11/17/2018 Procedure Start Time: 11:22 Procedure End Time: 11:32 Procedure Staff Name Function Srikanth Segovia MD Performing Physician Lesvia Amaya RT Monitor Neil Mirza RN Nurse Kalyani Kramer RT Scrub Sheryl Sanz RT Scrub Procedure Data Cath Procedure Fluoroscopy Diagnostic fluoroscopy Total fluoroscopy Time: 1.4 time: 1.4 min min Diagnostic fluoroscopy Total fluoroscopy dose: 417 dose: 417 mGy mGy Contrast Material Contrast Material Type Amount (ml) Isovue 300 110 Entry Location Entry Primary Successful Side Size Upsize Upsize Entry Closure Succes sful Closure Location (Fr) 1 (Fr) 2 (Fr) Remarks Device Remarks Femoral Left 5 Fr Exoseal artery Estimated blood loss: 5 ml Diagnostic catheters Device Type Used For End Catheter Placement MULTIPACK Pigtail 5 Fr LV Angiography catheter MULTIPACK Pigtail 5 Fr Abdominal catheter aortogram with runoff MULTIPACK JL 4.0 5Fr Left Coronary catheter Angiography MULTIPACK 3DRC 5Fr Right Coronary catheter Angiography Procedure Complications No complications Procedure Medications Medication Administration Route Dosage Oxygen etCO2 Nasal cannula 2 l/min Heparin Flush Bag added to field 2 bags (1000units/500ml NS) 0.9% NaCl I.V. 100 ml/hr Lidocaine 2% added to field 20 Fentanyl I.V. 50 mcg Versed I.V. 1 mg Fentanyl I.V. 50 mcg Versed I.V. 1 mg Fentanyl I.V. 50 mcg Versed I.V. 1 mg Fentanyl I.V. 50 mcg Versed I.V. 1 mg Fentanyl I.V. 50 mcg Hemodynamics Rest Heart Rate: 85 (bpm) Snapshots Pre Cath Intra NCS Post Cath Vital Signs Time Heart Resp SPO2 etCO2 NIBP (mmHg) Rhythm Pain Sedation Rate (ipm) (%) (mmHg) Status Level (bpm) 11:10:18 82 17 97 0 147/97(120) NSR 0 (11) 10(A) , No pain 11:14:35 81 17 98 22 150/100(127) NSR 0 (11) 10(A) , No pain 11:18:49 84 16 95 27.3 143/99(120) NSR 0 (11) 10(A) , No pain 11:23:06 87 16 93 33.3 146/96(118) NSR 0 (11) 10(A) , No pain 11:27:22 89 17 93 27.3 142/101(119) NSR 0 (11) 9(A) , No pain 11:31:05 93 17 95 40.9 144/96(128) NSR 0 (11) 9(A) , No pain Medications Time Medication Route Dose Verified Delivered Reason Notes Effe ctiveness by by 11:09:40 Oxygen etCO2 2 Srikanth Trejo Per Nasal l/min Luca Mirza RN physician cannula 11:09:47 Heparin Flush added 2 Srikanth Trejo used for Bag to bags Luca Mirza sap abap developer (1000units/500ml field NS) 11:09:55 0.9% NaCl I.V. 100 Srikanth Trejo Per ml/hr Luca Mirza RN physician 11:10:03 Lidocaine 2% added 20ml Srikanth Summersy used for to vial Luca Mirza sap abap developer field 11:19:45 Fentanyl I.V. 50 Srikanth Neil for laurie Mirza RN sedation 11:19:52 Versed I.V. 1 mg Srikanth Neil for Luca Mirza RN sedation 11:21:52 Fentanyl I.V. 50 Srikanth Summersy for laurie Mirza RN sedation 11:21:54 Versed I.V. 1 mg Srikanth Summersy for Luca Mirza RN sedation 11:23:57 Fentanyl I.V. 50 Srikanth Summersy for laurie Mirza RN sedation 11:24:00 Versed I.V. 1 mg Srikanth Summersy for Luca Mirza RN sedation 11:25:59 Fentanyl I.V. 50 Srikanth Neil for laurie Mirza RN sedation 11:26:01 Versed I.V. 1 mg Srikanth Summersy for Luca Mirza RN sedation 11:27:58 Fentanyl I.V. 50 Srikanth Summersy for laurie Mirza RN sedation Procedure Log Time Note 10:58:11 Lesvia Counts RT(R) sent for patient. Start room use. 11:03:12 Time tracking: Regular hours (M-F 7:00 - 5:00) 11:03:17 Plan of Care:Hemodynamics will remain stable., Cardiac rhythm will remain stable., Comfort level will be maintained., Respiratory function will remain adequate., Patient/ family verbilizes understanding of procedure., Procedure tolerated without complication., Recovers from procedure without complications.. 11:09:15 Patient received from Pre/Post Procedure Room to [facility] 1 Alert and oriented. Tansferred to table in Supine position. 11:09:16 Warm blankets applied, and rachel hugger turned on for patient comfort. 11:09:16 Correct patient and procedure confirmed by team. 11:09:17 Signed procedure consent form obtained from patient. 11:09:18 ECG and BP/O2 sat monitors applied to patient. 11:09:20 Vital chart was started 11:09:40 Oxygen 2 l/min etCO2 Nasal cannula was administered by Neil Mirza RN; Per physician; 11:09:47 Heparin Flush Bag (1000units/500ml NS) 2 bags added to field was administered by Neil Mirza RN; used for procedure; 11:09:55 0.9% NaCl 100 ml/hr I.V. was administered by Neil Mirza RN; Per physician; 11:10:03 Lidocaine 2% 20ml vial added to field was administered by Neil Mirza RN; used for procedure; 11:11:09 Rhythm: sinus rhythm 11:11:11 Full Disclosure recording started 11:11:19 H&P Date Dictated: 11/13/2018 Within 30 days and on chart., H&P Addendum completed by physician on day of procedure. (MUST COMPLETE FOR ALL OUTPATIENTS). 11:11:21 Pre-procedure instructions explained to patient. 11:11:21 Pre-op teaching completed and patient verbalized understanding. 11:11:24 Family unavailable. 11:11:25 Patient NPO since Midnight. 11:11:34 Patient allergic to Iodine 11:12:05 Patient allergic to Other allergyazithromycin, trazadone, ceclor, nickel 11:12:07 Is the patient allergic to Iodine/contrast media? Yes. 11:12:08 Was the patient premedicated? Yes 11:12:09 Is patient on blood thinner?Yes 11:12:12 ACC The patient was administered the following blood thiners within the last 24 hours: ACCPlavix 11:12:13 Patient diabetic? Yes. 11:12:15 If diabetic: On Metformin? Yes 11:12:17 If on Metformin: Last Dose? 11/15/2018 11:12:26 Previous problem with sedation/anesthesia? Yes Nausea 11:12:28 Snore? Yes 11:12:29 Sleep apnea? No 11:12:30 Deviated septum? No 11:12:31 Opens mouth fully? Yes 11:12:31 Sticks out tongue? Yes 11:12:36 Airway obstruction? Yes Asthma 11:12:39 Dentures? No ? 11:12:42 Pre procedure: right dorsailis pedis pulse 2+ Normal; easily identifiable; not easily obliterated 11:12:48 Pre procedure: left dorsailis pedis pulse 2+ Normal; easily identifiable; not easily obliterated 11:12:50 Patient pain scale 0/10 ?. 11:12:55 IV patent on arrival in right hand with 0.9% NaCl at [facility]. 11:12:57 Lab results completed and on chart. 11:13:02 Bilateral groins area was prepped with chlora-prep and draped in sterile fashion 11:13:03 Alarms reviewed by R. N. 11:13:03 Sharps counted by scrub and verified by R.N. 11:16:06 Baseline sample Acquired. 11:19:22 Final Timeout: patient, procedure, and site verified with staff and physician. All members of the team are in agreement. 11:19:28 Left groin site verified by team. 11:19:31 Fire Safety Assessment: A--An alcohol-based skin anteseptic being used preoperatively., C--Open oxygen or nitrous oxide is being used., D--An ESU, laser, or fiber-optic light is being used. 11:19:34 Physical assessment completed. ASA score P 2 - A patient with mild systemic disease as per Srikanth Segovia MD. 11:19:37 Sedation plan: IV Moderate Sedation Medication:Versed, Fentanyl 11:19:45 Fentanyl 50 mcg I.V. was administered by Neil Mirza RN; for sedation; 11:19:52 Versed 1 mg I.V. was administered by Neil Mirza RN; for sedation; 11:21:52 Fentanyl 50 mcg I.V. was administered by Neil Mirza RN; for sedation; 11:21:54 Versed 1 mg I.V. was administered by Neil Mirza RN; for sedation; 11:21:58 Procedure started. 11:22:02 Local anesthetic to left femerol artery with Lidocaine 2% by Srikanth Segovia MD.INITIAL ACCESS ONLY 11:23:02 A 5 Fr sheath was inserted into the Left Femoral artery 11:23:08 Use device set Femoral Dx 11:23:09 ACIST Syringe (53941) opened to sterile field. 11:23:10 Bag Decanter () opened to sterile field. 11:23:10 Medline Cath Pack ([id number]) opened to sterile field. 11:23:11 DIAGNOSTIC WIRE .035 260cm J wire (730079) opened to sterile field. 11:23:11 ACIST Hand Control (68050) opened to sterile field. 11:23:12 ACIST Manifold (81181) opened to sterile field. 11:23:12 DIAGNOSTIC Multipack 5Fr catheter set (ES0920) opened to sterile field. 11:23:13 Tegaderm 4 x 4 (1626W) opened to sterile field. 11:23:14 SHEATH 5FR Topock (HTG565) opened to sterile field. 11:23:57 Fentanyl 50 mcg I.V. was administered by Neil Mirza RN; for sedation; 11:24:00 Versed 1 mg I.V. was administered by Neil Mirza RN; for sedation; 11:24:04 A MULTIPACK Pigtail 5 Fr catheter was advanced over the wire and used for LV Angiography. 11:24:07 LV gram done using RIDDLE 11::12 Injector settings: Ml/sec: 7, Volume: 15, 11:24:18 EF : 55 % 11:24:25 A MULTIPACK Pigtail 5 Fr catheter was advanced over the wire and used for Abdominal aortogram with runoff. 11:25:11 Catheter removed. 11:25:48 A MULTIPACK JL 4.0 5Fr catheter was advanced over the wire and used for Left Coronary Angiography. 11:25:59 Fentanyl 50 mcg I.V. was administered by Neil Mirza RN; for sedation; 11:26:01 Versed 1 mg I.V. was administered by Neil Mirza RN; for sedation; 11:27:05 Catheter removed. 11:27:13 A MULTIPACK 3DRC 5Fr catheter was advanced over the wire and used for Right Coronary Angiography. 11:27:48 EXOSEAL 5Fr (EX500) opened to sterile field. 11:27:58 Fentanyl 50 mcg I.V. was administered by Neil Mirza RN; for sedation; 11::07 Catheter removed. 11::23 Sheath removed intact; hemostasis achieved with Exoseal to the Left Femoral artery. 11:28:26 Procedure ended.(Physican Out) 11:28:37 Fluoroscopy time 01.40 minutes. 11::41 Flurop Dose total: 417 ::41 Fluoroscopy dose: 417 mGy 11::54 Contrast amount:Isovue 300 110ml. 11:28:56 Sharps counted by scrub and verified by R.N. 11::57 Insertion/operative site no bleeding no hematoma. 11:29:01 Post-op/insertion site Left Femoral artery dressed using a 4 x 4 and Tegaderm. 11:29:04 Post left femerol artery:stable, clean and dry 11:29:05 Post Procedure Pulses reassessed and unchanged 11:29:08 Post-procedure physical assessment completed. ASA score P 2 - A patient with mild systemic disease as per Srikanth Segovia MD. 11:29:10 Post procedure rhythm: unchanged. 11:29:13 Estimated blood loss: 5 ml 11:29:15 Post procedure instruction explained to patient.Patient verbalizes understanding. 11:29:15 Patient needs reinforcement of post procedure teaching. 11:29:43 Procedure Complication : No complications 11:29:45 See physician's report for complete and final results. 11:30:04 Procedure and supply charges have been captured, reviewed, submitted and are correct. 11:32:09 Vital chart was stopped 11:32:11 Report given to Pre/Post Procedure Room. 11:32:13 Patient transfered to Pre/Post Procedure Room with Stretcher. 11:32:24 Procedure ended. 11:32:24 Full Disclosure recording stopped 11:32:37 End room use (Document Last) Device Usage Item Name Manufacture Quantity Catalog Hospital Part Current Minimal L ot# / Number Charge Number Stock Stock Serial# Code ACIST Acist 1 67987 996076 708276 475618 20 Syringe Medical (50542) Systems Inc Bag Microtek 1 852168 77326 824498 5 Decanter Medical Inc. () Medline Medline 1 [id number] 320217 79281 179086 5 Cath Pack ([id number]) DIAGNOSTIC St [place] 1 153200 777556 299687 534764 30 WIRE .035 260cm J wire (375845) ACIST Hand Acist 1 30683 439822 422720 722574 5 Control Medical (69084) Systems Inc ACIST Acist 1 32955 903972 478547 367630 5 Manifold Medical (39719) Systems Inc DIAGNOSTIC Cardinal 1 BQ4451 514696 90313 629710 30 Multipack Health 5Fr catheter set (IQ5071) Tegaderm 4 3M 1 1626W 723718 816315 471983 5 x 4 (1626W) SHEATH 5FR Terumo 1 TRC508 874244 091468 829602 5 Topock (VMG588) MULTIPACK Cardinal 1 856620 5 Pigtail 5 Health Fr catheter MULTIPACK Cardinal 1 256999 5 JL 4.0 5Fr Health catheter MULTIPACK Cardinal 1 334313 5 3DRC 5Fr Health catheter EXOSEAL 5Fr Cardinal 1 EX500 793483 373777 237683 10 (EX500) Health Signature Audit [place] Stage Time Signature Unsigned Intra-Procedure 11/17/2018 Lesvia 11:33:46 AM Counts RT(R) Signatures Monitor : Lesvia Signature : Counts RT Date : Time : [place] [id number] [place] [address]
[~2018-11-17 08:55] MED LIST changes: +PREDNISONE10 MG PO; +PROTONIX40 MG PO
[2018-11-17 09:59] VITALS: BP 135/91; Ht 162.6 cm; Wt 79.5 kg
[2018-11-17 10:14] LABS: BASOPHILS 0.2 % (0-2); EOSINOPHILS 0.4 % (0-7); HEMATOCRIT 39.8 % (36.0-48.0); HEMOGLOBIN 13.6 g/dL (12-16); IMMATURE GRANULOCYTES 0.7 % (0-5); LYMPHOCYTES 16.3 % (15-50); MCH 29.8 pg (26.0-34.0); MCHC 34.2 g/dL (31.0-37.0); MCV 87.1 fL (80.0-100.0); MEAN PLATELET VOLUME 10.4 fL (7.4-10.4); MONOCYTES 5.1 % (2-11); NEUTROPHILS 77.3 % (40-80); RBC 4.57 10x6/uL (4.00-5.40); WBC 12.3 10x3/uL (4.8-10.8)
[2018-11-17 10:23] LABS: ANION GAP 14.9 mmol/L (8-16); CALCIUM 9.1 mg/dL (8.5-10.1)
[2018-11-17 10:24] LABS: PLATELET COUNT 360 10x3/uL (130-400)
[2018-11-17 10:25] LABS: POTASSIUM - SERUM 3.9 mmol/L (3.5-5.1)
--- NOTE | 2018-11-17 11:55 | NUR ---
ROOM AIR, NO RESP DISTRESS. LEFT GROIN 5F EXOSEAL CDI, NO BLEEDING OR HEMATOMA NOTED. NO C/O PAIN OR NAUSEA. VSS. CALL LIGHT WITHIN REACH.
--- NOTE | 2018-11-17 12:25 | NUR ---
RESTING QUIETLY WITH EYES CLOSED. LEFT GROIN 5F EXOSEAL MOIZ, NO BLEEDING OR HEMATOMA NOTED. DENIES ANY NEEDS AT THIS TIME. VSS. WILL CONTINUE TO MONITOR.
--- NOTE | 2018-11-17 12:40 | NUR ---
HOB ELEVATED 30 DEGREES. LEFT GROIN 5F EXOSEAL CDI, NO BLEEDING OR HEMATOMA NOTED. SIPPING ON DRINK AND EATING SANDWICH WITH NO C/O NAUSEA. VSS. WILL CONTINUE TO MONITOR.
--- NOTE | 2018-11-17 13:20 | NUR ---
RIGHT HAND PIV D/C'D WITH CATHETER INTACT, BAND AID TO SITE. UP TO BEDSIDE TO GET DRESSED. LEFT GROIN 5F EXOSEAL CDI, NO BLEEDING OR HEMATOMA NOTED.
--- NOTE | 2018-11-17 13:45 | NUR ---
DISCHARGE INSTRUCTIONS GIVEN, VERBALIZED UNDERSTANDING.
--- NOTE | 2018-11-17 14:40 | NUR ---
PT'S RIDE ARRIVED. TAKEN OUT VIA WHEELCHAIR BY CATH OWNER CONSULTING ENGINEER. LEFT FACILITY WITH FAMILY AND ALL PERSONAL BELONGINGS.
--- NOTE | 2018-11-25 11:18 | OP ---
PATIENT NAME: TANISHA TAYLOR MEDICAL RECORD: [id number] :68 LOCATION:D.[facility] ADMISSION DATE: SURGEON: PAKO CONNOLLY MD DATE OF OPERATION: 11/17/2018 PROCEDURES: 1. Left heart catheterization. 2. Selective coronary angiography. 3. Left ventriculogram. 4. Aortofemoral runoff. 5. Abdominal aortography. INDICATION: Claudication, peripheral vascular disease, angina, coronary artery disease. DESCRIPTION OF PROCEDURE: After informed consent was obtained with detailed description of risks and benefits as well as alternative therapies, the patient elected to proceed with cardiac catheterization and aortofemoral runoff. The right femoral area was prepped and draped in normal sterile fashion. Right femoral artery was cannulated via modified Seldinger technique with placement of 5-Arabic sheath. All catheters were exchanged through this sheath. FINDINGS: Left ventriculogram performed in standard 30-degree RIDDLE view reveals good cardiac wall motion throughout all segments. Overall ejection fraction is estimated at 60%. SELECTIVE CORONARY ANGIOGRAPHY: 1. Left main has no significant angiographic disease. 2. Left anterior descending has moderate irregularities, but no flow-limiting stenosis. 3. Left circumflex has moderate irregularities, but no flow-limiting stenosis. 4. Right coronary has a previously placed stent. This is widely patent with no significant restenosis. No disease elsewise of the RCA or its branches. 5. Abdominal aortography was performed. The catheter was pulled down for aortofemoral runoff. Abdominal aortography reveals no significant abdominal aortic disease. No dissection or aneurysm formation. RIGHT LEG: A. Iliac: The common internal and external iliacs have no significant peripheral vascular disease. B. Femoral system: The common superficial and deep femoral have moderate irregularities, but no flow-limiting stenosis. C. Popliteal and infrapopliteal vessels are widely patent with good 3-vessel runoff to the foot. LEFT LEG: A. Iliac: The common internal and external iliacs have no significant peripheral vascular disease. B. Femoral system: The common superficial and deep femoral have moderate irregularities, but no flow-limiting stenosis. C. Popliteal and infrapopliteal vessels are widely patent with good 3-vessel runoff to the foot. OVERALL IMPRESSION: 1. No new coronary artery disease is present. Wide patency of the previously OPERATIVE REPORT [id number] TANISHA TAYLOR placed stent. 2. No significant peripheral vascular disease is present. TRANSINT:[id number] Voice Confirmation ID: [id number] DOCUMENT ID: [id number] PAKO CONNOLLY MD at 1118 CC: [id number] DICTATION DATE: 11/17/18 1135 STOCK HANDLER FLOORPERSON: 11/17/18 1242 DEP CLI 11/17/18 [place] [id number]
== END 2018-11-17 14:40 | disposition home or self-care (01) ==
LOC: D.CATH 08:55
PROVIDERS: Internal Medicine Interventional Cardiology
DX: I25.10 Atherosclerotic heart disease of native coronary artery without angina pectoris (principal); I73.9 Peripheral vascular disease, unspecified; Z95.5 Presence of coronary angioplasty implant and graft; Z01.812 Encounter for preprocedural laboratory examination

== ENCOUNTER → 2019-01-09 13:50 | Outpatient (CLI) | payer MEDICAID ==
[2018-11-17 09:59] VITALS: BMI 30.1
--- NOTE | 2019-01-14 14:39 | EC ---
PATIENT:TANISHA TAYLOR DATE OF SERVICE: 01/09/19 SEX: F MEDICAL RECORD: [id number] DATE OF : [birth year] LOCATION:[facility] AGE OF PATIENT: 48 ADMISSION DATE: 01/09/19 REFERRING PHYSICIAN: INTERPRETING PHYSICIAN: PAKO SEGOVIA MD ECHOCARDIOGRAM REPORT ECHO CHARGES 4 ECHO COMPLETE Date: 01/09/19 CLINICAL DIAGNOSIS: CAD/COUGH FOR 4 MONTHS ECHOCARDIOGRAPHIC MEASUREMENTS (adult normal given) AC root (d.<3.7cm) 2.9 cm LV Septum d (<1.2 cm> 0.90 cm Valve Excursion 1.8 cm LV Septum (systole) 1.4 cm Left Atria (s.<4.0cm> 3.7 cm LVPW d(<1.2cm) 1.2 cm RV (d.<2.3cm) 2.8 cm LVPW (sytole) 1.6 cm LV diastole(<5.6CM) 4.5 cm MV E-F(>70mm/sec) cm LV systole 2.5 cm LVOT Diameter 1.8 cm MV exc.(>10mm) 1.5 cm Est.ejection fraction (50-75%) % DOPPLER: LVIT cm/sec A 97.0 cm/sec E 87.0 cm/sec LA cm/sec RVSP 19 mmHg LVOT 110 cm/sec AOP1/2T m/s Asc. Ao 123 cm/sec RVOT 83 cm/sec RA cm/sec PA 90 cm/sec AV Gradient Peak 6.10 mmHg AV Mean 3.28 mmHg AV Area 2.2 cm MV Gradient Peak 4.92 mmHg MV Mean 2.11 mmHg MV Area cm COMMENTS: Skimmer Reverberatory: 2 SUZAN OLIVAS [employer] Wireman: 1 Dr. Segovia TAPE# PACS Pericardial Effusion N DATE OF SERVICE: FINDINGS: 1. Left ventricular chamber size is within normal limits. Left ventricular systolic function is normal. Overall ejection fraction estimated at 60%. 2. Left atrium and right atrium and right ventricle chamber sizes are within normal limits. 3. Valvular structures have normal structure and motion. 4. Doppler interrogation reveals trace tricuspid regurgitation, no other valvular insufficiency or stenosis. ECHOCARDIOGRAM REPORT [id number] TANISHA TAYLOR 5. No evidence of pericardial effusion or left ventricular thrombus. TRANSINT:[id number] Voice Confirmation ID: [id number] DOCUMENT ID: [id number] PAKO SEGOVIA MD at 1439 CC: [id number] DICTATION DATE: 01/09/19 164 COUNTRY MANAGER: 01/09/192024 DEP CLI 01/09/19 [place] [id number] [place] [id number]
== END | disposition home or self-care (01) ==
LOC: D.HCCARDIO 13:50
PROVIDERS: ATTEND Internal Medicine Interventional Cardiology
DX: I25.119 Atherosclerotic heart disease of native coronary artery with unspecified angina pectoris (principal)

== ENCOUNTER → 2020-06-24 20:19 | Outpatient (CLI) | payer MEDICAID ==
[2018-11-17 09:59] VITALS: BMI 30.1
== END | disposition home or self-care (01) ==
LOC: D.MAMMO 09:30
PROVIDERS: ATTEND Obstetrics & Gynecology
DX: N64.4 Mastodynia (principal)

== ENCOUNTER → 2020-06-29 08:07 | Outpatient (CLI) | payer MEDICAID ==
[2018-11-17 09:59] VITALS: BMI 30.1
== END | disposition home or self-care (01) ==
LOC: D.US 06-27 16:00
PROVIDERS: ATTEND Obstetrics & Gynecology
DX: R93.89 Abnormal findings on diagnostic imaging of other specified body structures (principal)

== ENCOUNTER → 2020-07-01 10:50 | Outpatient (CLI) | payer MEDICAID ==
[2018-11-17 09:59] VITALS: BMI 30.1
== END | disposition home or self-care (01) ==
LOC: D.CT 10:30
PROVIDERS: ATTEND Obstetrics & Gynecology
DX: R10.9 Unspecified abdominal pain (principal)